=== PATIENT | male | born 1970 | race Caucasian/White ===

== ENCOUNTER 2017-11-19 08:05 | Emergency (ER) | payer BC ==
[~2017-11-19] VITALS: Ht 172.7 cm; Wt 100.0 kg
[2017-11-19] MEDS ORDERED: SULF1TAB49 PO (08:42)
[2017-11-19] MEDS ORDERED: HYDR-3965 PO (08:42)
[2017-11-19] MEDS ORDERED: CEPH500C5 PO (08:42)
[2017-11-19 09:04] VITALS: BP 145/89
== END 2017-11-19 09:07 | disposition home or self-care (01) ==
LOC: ER 08:05
DX: L03.317 Cellulitis of buttock (principal)
CPT/HCPCS: 87070; 87077; 87186; 99283

== ENCOUNTER → 2020-12-09 | Emergency (ER) | payer BC ==
[~2020-12-09] VITALS: Ht 172.7 cm; Wt 95.5 kg
[~2020-12-09] MED LIST: HYDR-3973 PO; cyclopentolate 2% ophthalmic sol 5ml RIGHTEYE ONE; moxifloxacin 0.5% ophthalmic drops 3ml RIGHTEYE STA; proparacaine 0.5% ophthalmic drops 15ml RIGHTEYE ONE
== END | disposition home or self-care (01) ==
LOC: ER 15:27
DX: S05.71XA Avulsion of right eye, initial encounter (principal); H57.11 Ocular pain, right eye; Z98.890 Other specified postprocedural states; Z79.899 Other long term (current) drug therapy; X58.XXXA Exposure to other specified factors, initial encounter; Y93.89 Activity, other specified; Y92.89 Other specified places as the place of occurrence of the external cause; Y99.8 Other external cause status
CPT/HCPCS: 65222; 99284